=== PATIENT | female | born 1985 | race Two or more races ===

== ENCOUNTER 2021-02-24 11:59 | Emergency (ER) | payer MEDICAID ==
[~2021-02-24] VITALS: Ht 152.4 cm; Wt 77.1 kg
[2021-02-24 12:28] VITALS: BP 142/92
== END 2021-02-24 13:23 | disposition home or self-care (01) ==
LOC: ER 11:59
DX: H61.23 Impacted cerumen, bilateral (principal); Z90.49 Acquired absence of other specified parts of digestive tract
CPT/HCPCS: 69209